=== PATIENT | male | born 1980 | race Caucasian/White ===

== ENCOUNTER → 2017-07-28 16:15 | Outpatient (CLI) | payer OTHER | END | disposition home or self-care (01) | LOC: D.MRI 07-27 09:00 | DX: M23.306 Other meniscus derangements, unspecified meniscus, right knee (principal) ==

== ENCOUNTER → 2019-09-16 15:21 | Outpatient (CLI) | payer OTHER | END | disposition home or self-care (01) | LOC: D.MRI 15:00 | PROVIDERS: ATTEND Family Medicine | DX: M79.672 Pain in left foot (principal) ==

== ENCOUNTER → 2019-11-29 08:56 | Outpatient (CLI) | payer OTHER | END | disposition home or self-care (01) | LOC: D.NM 08:56 | PROVIDERS: ATTEND Orthopaedic Surgery Sports Medicine | DX: M79.672 Pain in left foot (principal) ==